=== PATIENT | female | born 1985 | race Caucasian/White ===

== ENCOUNTER → 2021-06-16 | Outpatient (CLI) | payer OTHER ==
--- NOTE | 2021-06-16 10:04 | REP ---
INDICATION: CONTUSION/PAIN COMPARISON: None. TECHNIQUE: AP, lateral, bilateral oblique views left 5th toe. FINDINGS: There appears to be a nondisplaced oblique fracture of the 5th toe proximal phalanx with overlying soft tissue swelling. IMPRESSION: Nondisplaced oblique fracture of the proximal phalanx. <Electronically signed by Eduard Alicea > 06/16/21 1000
== END ==
LOC: M WUC 09:31
PROVIDERS: ATTEND Physician Assistant
DX: S92.515A Nondisplaced fracture of proximal phalanx of left lesser toe(s), initial encounter for closed fracture (principal); X58.XXXA Exposure to other specified factors, initial encounter; Y92.9 Unspecified place or not applicable; Y99.9 Unspecified external cause status